=== PATIENT | female | born 1995 | race Asian ===

== ENCOUNTER 2020-03-28 18:26 | Emergency (ER) | payer OTHER ==
[~2020-03-28] VITALS: Ht 160 cm; Wt 142.0 kg
[2020-03-28 19:10] VITALS: BP 125/62; TEMP 98.6
== END 2020-03-28 21:36 | disposition home or self-care (01) ==
LOC: ED 18:26
DX: M79.604 Pain in right leg (principal); V09.00XA Pedestrian injured in nontraffic accident involving unspecified motor vehicles, initial encounter; Y92.488 Other paved roadways as the place of occurrence of the external cause
CPT/HCPCS: 99281